=== PATIENT | male | born 1975 | race Caucasian/White ===

== ENCOUNTER 2018-10-16 16:37 | Observation (INO) ==
[2018-10-16] MEDS ORDERED: 0.9 % Sodium Chloride 500 ML IVC ONE (17:05)
[2018-10-16] MEDS ORDERED: cefTRIAXone 1,000 MG in Water for inj. (sterile) 20 ML 10 ML IVP ONE (17:13)
--- NOTE | 2018-10-16 17:25 | Emergency Department Note ---
Disposition Clinical Impression: Acute kidney injury superimposed on chronic kidney disease, Acute cystitis, Spina bifida Cellulitis Qualifiers: Site of cellulitis: unspecified site Qualified Code(s): L03.90 - Cellulitis, unspecified Disposition: Admitted As Inpatient Condition: Fair Forms: ED Satisfaction Letter Time of Disposition: 19:26 General Adult HPI - General Chief complaint: ED Recheck/Abnormal Lab/Rx Stated complaint: rash, weakness, multiple compaints Time Seen by Provider: 10/16/18 16:51 Source: EMS Limitations: physical limitation Nursing Notes Reviewed: Yes Vital Signs Reviewed: Yes - History of Present Illness HPI Narrative: 42-year-old male with a history of spina bifida, nephrectomy, COPD presents for evaluation from [place]. Patient was transferred from [place] for concerns of an elevated d-dimer and was needing a VQ scan given his history of nephrectomy. Patient provided the history stating that he does wear oxygen at times and home. States post were 2 L. States he is noncompliant with his BiPAP because a light sleeper. Does have known COPD and follows with pulmonary. Patient notes chest pain approximately 2 years that is been off and on. Patient denies any cough or fevers. Patient does have a rash on his abdomen which he states started a week ago. No history of any allergies. Patient states has been using topical medicine to help with the rash. Appears to not be puritic. Patient's initial evaluation was done at [place] related a chest x-ray basic labs. Given the patient's history spina bifida a does not have normal lower extremities. Patient is incontinent of urine does self catheter. Pain Scale: 0 - Related Data Previous Rx's Medication Instructions Recorded Metoprolol XL (24 HR) Succ [Toprol 12.5 mg PO DAILY #30 tab.er.24h 10/25/17 Xl] Multivit/Ca/Min/Fe/FA [Thera M 1 tab PO DAILY tablet 10/25/17 Plus] Polyethylene Glycol 3350 [MiraLAX] 17 gm PO DAILY powd.pack 10/25/17 levETIRAcetam [Keppra] 1,250 mg PO BID tablet 10/25/17 Allergies Allergy/AdvReac Type Severity Reaction Status Date / Time No Known Allergies Allergy Verified 09/06/17 12:43 All systems ED: reviewed and negative except as stated. Constitutional: Denies: fever Cardiovascular: Reports: chest pain Respiratory: Reports: dyspnea. Denies: cough Gastrointestinal: Denies: abdominal pain, nausea, vomiting Past Medical History - Past Medical History Source: patient Medical history: Reports: CHF, COPD, hypertension, renal disease Psychiatric history: Reports: no psych history - Social History Smoking Status: Never smoker Smokeless Tobacco Status: No Alcohol use: Reports: none Drug use: Reports: none Physical Exam - General Limitations: physical limitation General appearance: alert - Head Head exam: atraumatic, normocephalic, normal inspection - Eye Eye exam: Present: normal appearance, PERRL, EOMI - ENT ENT exam: normal exam, mucous membranes dry - Neck Neck exam: Present: normal inspection - Chest Chest inspection: Present: normal inspection, symmetric chest wall rise - Respiratory Respiratory exam: Present: accessory muscle use, other (Diffusely diminished) - Cardiovascular Cardiovascular exam: Present: regular rate, tachycardia. Absent: systolic murmur - Abdominal Exam Abdominal exam: Present: Non-Tender, distention, other (Blanching erythematous rash on the right side of his abdomen traversing down his thigh. Warm to the touch.) - Extremities Exam Extremities exam: Present: other (Paraplegic) - Neurological Exam Neurological exam: Present: alert, oriented X3, CN II-XII intact - Skin Skin exam: Present: warm, dry, intact, other Course Course Narrative: Patient's workup was reviewed from [facility]. Will add a VQ scan. Concerns of likely cellulitis patient will get CT scan the abdomen pelvis given abdominal distention as well as concerns for cellulitis and a rash. Patient will be started on the most appropriate antibiotics. Patient also has concerns for UTI with urinary incontinence and straight catheterization. Patient with a Pineda placed. Labs reveal acute on chronic kidney disease. Patient will likely require admission simply based on his comorbidities and his acute on chronic kidney disease. - Reevaluation(s) Reevaluation #1: Patient's labs reviewed. Patient urine studies reveal intrinsic kidney injury. Patient will be admitted for acute on chronic kidney disease as well as cellulitis. Time: 19:15 Reevaluation #2: Patient's VQ scan is low probability PE. Time: 19:38 Vital Signs Temperature 98.8 F 10/16/18 16:41 Pulse Rate 86 10/16/18 16:41 Respiratory Rate 14 10/16/18 16:41 Blood Pressure 148/113 10/16/18 16:41 O2 Sat by Pulse Oximetry 99 10/16/18 16:41 Temperature 98.8 F 10/16/18 16:41 Pulse Rate 103 10/16/18 19:16 Respiratory Rate 14 10/16/18 19:16 Blood Pressure 138/101 10/16/18 19:16 O2 Sat by Pulse Oximetry 93 10/16/18 19:25 Oxygen Delivery Oxygen Delivery Nasal Cannula Medical Decision Making - [facility] Narrative Medical decision making narrative: Patient presented for concerns of rash as well as generalized weakness. Patient does have a complex medical history. Including a nephrectomy with only one kid sara. Patient's abdomen appeared more distended and red. Did prompt CT imaging was shows no acute abnormality. Does have a [employer] shunt which feels not related the patient's initial presentation. Patient also has an element of COPD likely pulmonary hypertension. Patient had a VQ scan which showed low probably PE. Patient's kidney function appears acutely worse. Patient normal kidneys approximately a month ago. Appears to be intrinsic kidney injury based on labs. Patient also self catheters and was placed on most appropriate antibiotic to cover gram positives and negatives. Patient will be admitted to hospitals for's for continued evaluation and monitoring. - Medical Records Medical records reviewed: Yes I reviewed the patient's medical records. 08/2018 Impressions: Technically challenging due to clinical status - history of spina bifida, cannot position for testing. LVEF 55%. Mild left ventricular diastolic dysfunction. RV is normal in size. There is mild reduction in function. Left atrium is not optimally visualized. LA appears externally compressed. Consider dedicated CT imaging if appropriate. Mild-moderate tricuspid regurgitation. Moderate pulmonary hypertension. There is a small pericardial effusion present. There is no echocardiographic evidence of tamponade. - Lab Data Lab Results 10/16/18 10/16/18 10/16/18 Range/Units 17:37 18:04 18:04 PT 13.7 H (9.4-12.1) Seconds INR 1.2 Urine Color Yellow (Yellow) Urine Clarity Cloudy A (Clear) Urine pH 5.5 (5.0-8.0) pH Units Ur Specific [place] 1.021 (1.010-1.025) Urine Protein 30 H (Neg-Trace) mg/dL Urine Glucose (UA) Normal (Normal) mg/dL Urine Ketones Negative (Negative) mg/dL Urine Blood Small H (Negative) Urine Nitrite Negative (Negative) Urine Bilirubin Negative (Negative) Urine Urobilinogen Normal (Normal) mg/dL Ur Leukocyte Esterase Large H (Negative) Urine Microscopic RBC 0-3 (0-3) per hpf Urine Microscopic WBC 50-100 H (0-3) per hpf Ur Squamous Epith Cells Moderate H (None-Few) per lpf Urine Bacteria Many H (None-Few) per hpf Hyaline Casts None Seen (None-Few) per lpf Urine Creatinine 57 mg/dL Urine Sodium 66.9 mEq/L - Radiology Data Radiology results reviewed: Yes I reviewed the patient's radiology results. Abdomen/Pelvis CT 10/16/18 17:04 IMPRESSION: 1. Small volume ascites increased from prior. 2. Redemonstration of 10 cm right lobe of liver cyst. [employer] shunt catheter was coursing through it on the previous. Currently it courses outside of the liver. 3. No bowel obstruction. 4. No direct evidence for acute infective or inflammatory process. D/ / Andrew Serrano MD / Andrew Serrano MD Interpreting Provider: Andrew Serrano MD - EKG Data EKG #1 EKG attestation: Yes I reviewed and interpreted this EKG. EKG shows normal: sinus rhythm Rate: normal Rhythm: NSR P waves: LAE, DHAVAL When compared to previous EKG there are: no significant changes Interpretation: no acute changes, nonspecific ST-T wave changes S.B.AManjit - S.B.A.RPedro Situation: Demographics Background: Presenting Complaint Assessment: Vital Signs, Course and respsone to treatment, Patient/Family Expectation Recommendation: Barrier(s) to disposition, Recommendation based on pending studies, treatments, or consults S.B.A.Cynthia Report Given to: Dr. Kelly NevarezAManjit Repor Time: 19:26
[2018-10-16 18:01] LABS: INR 1.2; Prothrombin Time 13.7 Seconds (9.4-12.1)
[2018-10-16 18:14] LABS: Bilirubin,Urine Negative (Negative); Blood,Urine Small (Negative); Clarity,Urine Cloudy (Clear); Color,Urine Yellow (Yellow); Glucose,Urine (UA) Normal (Normal); Ketones,Urine Negative (Negative); Leukocyte Esterase,Urine Large (Negative); Nitrite,Urine Negative (Negative); PH,Urine 5.5 pH Units (5.0-8.0); Protein,Urine 30 mg/dL (Neg-Trace); Specific Gravity,Urine 1.021 (1.010-1.025); Urobilinogen,Urine Normal (Normal)
[2018-10-16 18:17] LABS: Bacteria,Urine Many per hpf (None-Few); Hyaline Casts,Urine None Seen per lpf (None-Few); RBC,Urine 0-3 per hpf (0-3); Squamous Epithelial Cell,Urine Moderate per lpf (None-Few); WBC,Urine 50-100 per hpf (0-3)
[2018-10-16 18:36] LABS: Sodium, Urine 66.9 mEq/L
--- NOTE | 2018-10-16 19:35 | Emergency Department Note ---
Disposition Clinical Impression: Acute kidney injury superimposed on chronic kidney disease, Acute cystitis, Spina bifida Cellulitis Qualifiers: Site of cellulitis: unspecified site Qualified Code(s): L03.90 - Cellulitis, unspecified Disposition: Admitted As Inpatient Condition: Fair Forms: ED Satisfaction Letter General Adult HPI - General Chief complaint: ED Recheck/Abnormal Lab/Rx Stated complaint: rash, weakness, multiple compaints Time Seen by Provider: 10/16/18 16:51 Source: EMS Limitations: physical limitation - History of Present Illness Pain Scale: 0 - Related Data Previous Rx's Medication Instructions Recorded Metoprolol XL (24 HR) Succ [Toprol 12.5 mg PO DAILY #30 tab.er.24h 10/25/17 Xl] Multivit/Ca/Min/Fe/FA [Thera M 1 tab PO DAILY tablet 10/25/17 Plus] Polyethylene Glycol 3350 [MiraLAX] 17 gm PO DAILY powd.pack 10/25/17 levETIRAcetam [Keppra] 1,250 mg PO BID tablet 10/25/17 Allergies Allergy/AdvReac Type Severity Reaction Status Date / Time No Known Allergies Allergy Verified 09/06/17 12:43 Constitutional: Denies: fever Cardiovascular: Reports: chest pain Respiratory: Reports: dyspnea. Denies: cough Gastrointestinal: Denies: abdominal pain, nausea, vomiting Past Medical History - Past Medical History Medical history: Reports: CHF, COPD, hypertension, renal disease Psychiatric history: Reports: no psych history - Social History Smoking Status: Never smoker Smokeless Tobacco Status: No Alcohol use: Reports: none Drug use: Reports: none Physical Exam - General Limitations: physical limitation General appearance: alert Course Vital Signs Temperature 98.8 F 10/16/18 16:41 Pulse Rate 86 10/16/18 16:41 Respiratory Rate 14 10/16/18 16:41 Blood Pressure 148/113 10/16/18 16:41 O2 Sat by Pulse Oximetry 99 10/16/18 16:41 Temperature 98.8 F 10/16/18 16:41 Pulse Rate 103 10/16/18 19:16 Respiratory Rate 14 10/16/18 19:16 Blood Pressure 138/101 10/16/18 19:16 O2 Sat by Pulse Oximetry 93 10/16/18 19:25 Oxygen Delivery Oxygen Delivery Nasal Cannula Medical Decision Making - Lab Data Lab Results 10/16/18 10/16/18 10/16/18 Range/Units 17:37 18:04 18:04 PT 13.7 H (9.4-12.1) Seconds INR 1.2 Urine Color Yellow (Yellow) Urine Clarity Cloudy A (Clear) Urine pH 5.5 (5.0-8.0) pH Units Ur Specific [place] 1.021 (1.010-1.025) Urine Protein 30 H (Neg-Trace) mg/dL Urine Glucose (UA) Normal (Normal) mg/dL Urine Ketones Negative (Negative) mg/dL Urine Blood Small H (Negative) Urine Nitrite Negative (Negative) Urine Bilirubin Negative (Negative) Urine Urobilinogen Normal (Normal) mg/dL Ur Leukocyte Esterase Large H (Negative) Urine Microscopic RBC 0-3 (0-3) per hpf Urine Microscopic WBC 50-100 H (0-3) per hpf Ur Squamous Epith Cells Moderate H (None-Few) per lpf Urine Bacteria Many H (None-Few) per hpf Hyaline Casts None Seen (None-Few) per lpf Urine Creatinine 57 mg/dL Urine Sodium 66.9 mEq/L Critical Care Time Critical Care Time: Yes Total Critical Care Time: 35 Attestation: CC time of 35 min spent in managment of cellulitis, UTI, renal insuff, spina bifida. Attestation Statement - Attestation Attestation: I examined this patient and my medical decision-making was reviewed with the Resident Physician. I agree with the documented findings, disposition and treatment plan as described except to the extent set forth below. 42-year-old male with a history of spina bifida presents to the emergency room for an elevated d-dimer and right flank pain. Patient is a history of a left sided nephrectomy. He is noted some tenderness to the skin and redness to the skin to the right flank and right side of his abdomen. Exam-aguilera is concerning for possible developing cellulitis. Patient is states he has not felt well. CT scan was done of the abdomen and pelvis which does not show any acute findings. Low probability on the patient's VQ scan. We started the patient on IV antibiotics for possible cellulitis. Patient will be admitted for this. He does have slight elevation of his creatinine as well. Case was discussed with hospitalist. Patient also has evidence of urinary tract infection. Patient was given Rocephin IV and vancomycin IV. Hemodynamically stable
[2018-10-16] MEDS ORDERED: Naloxone 0.4 MG/ML INJ IVP PRN (21:35)
[2018-10-16] MEDS ORDERED: Ipratropium/Albuterol Neb 3 ML IH PRN (21:39)
[2018-10-16] MEDS ORDERED: Ringers Solution, Lactated 1,000 ML IVC SCH (21:45)
--- NOTE | 2018-10-16 22:07 | Internal Med History&Physical ---
<Meet Cartagena R - Last Filed: 10/16/18 23:12> Date of Encounter: 10/16/18 Time of Encounter: 21:30 Internal Medicine - H&P: HPI Chief complaint: rash Admitted From: Emergency Dept Plans for Post Hospital Care: Home History of present illness: Mr. Duarte is a 42 year old male with a past medical history of spina-bifida, copd on 3L NC at home, s/p left nephrectomy. Presented to [facility] ED for evaluation of r keo on his abdomen and associated malaise. Reports that he has been putting a topical cream on the rash but has not helped. It is mildly tender to palpation and involves much his right abdomen, flank and proximal groin region. He denies history of cellulitis. Admits to a recent boil on his right upper thigh. No fevers, chill, nausea, vomiting, diarrhea, palpitations, chest pain, or dizziniess. Also states that his home pulse oximeter has been measuring low 70's while on room air, he normally requires 3L NC at baseline. Admits to history of COPD and ED, is not compliant with CPAP. No history of DVT or PE. Evaluation in the ED did reveal mild tachycardia of 104, elevated serum creatinine of 2.45. UA suggestive of UTI. CT abdomen and pelvis without significant acute findings. D-dimer 2100 with V/Q scan of low probability. Patient was given Vancomycin and ceftriaxone and admitted to [facility] for further evaluation and management. Past Med Surg Social Fam HX - Past Medical History Medical history: CHF, COPD, hypertension, renal disease Additional medical history: Spina bifida Psychiatric history: no psych history - Past Surgical History Additional surgical history: brain shunt, nephrectomy, r leg amputated. - Social History Smoking Status: Never smoker Smokeless Tobacco Status: No Alcohol use: none Drug use: none Internal Medicine - H&P: Meds Metoprolol XL (24 HR) Succ [Toprol Xl] 12.5 mg PO DAILY #30 tab.er.24h 10/25/17 [Rx] Multivit/Ca/Min/Fe/FA [Thera M Plus] 1 tab PO DAILY tablet 10/25/17 [Rx] Polyethylene Glycol 3350 [MiraLAX] 17 gm PO DAILY powd.pack 10/25/17 [Rx] levETIRAcetam [Keppra] 1,250 mg PO BID tablet 10/25/17 [Rx] Allergy/AdvReac Type Severity Reaction Status Date / Time No Known Allergies Allergy Verified 09/06/17 12:43 All Systems PM: A 10-system review of systems was performed and is negative for pertinent findings except as documented above in the HPI. - Constitutional Constitutional: no chills, no fever(s) - EENT Eyes: no change in vision, no diplopia Nose, mouth and throat: no epistaxis, no neck pain, no sore throat - Cardiovascular Cardiovascular ROS IM: no chest pain, no diaphoresis, no palpitations - Respiratory Respiratory: dyspnea on exertion, no cough, no hemoptysis, no wheezing - Gastrointestinal Gastrointestinal: no abdominal pain, no change in bowel habits, no diarrhea, no hematemesis, no hematochezia, no loose stools, no melena, no nausea, no vomiting - Genitourinary Genitourinary ROS male: no dysuria, no flank pain, no hematuria - Musculoskeletal Musculoskeletal ROS IM: no arthralgias, no muscle weakness - Integumentary Integumentary IM: erythema, rash - Neurological Neurological ROS: no confusion, no dizziness, no focal weakness - Psychiatric Psychiatric: no anxiety, no depression - Hematologic/Lymphatic Hematologic/Lymphatic: no easy bleeding, no easy bruising - Constitutional Vitals: Temp Pulse Resp BP Pulse Ox 98.0 F 87 15 135/92 100 10/16/18 21:13 10/16/18 21:13 10/16/18 21:13 10/16/18 21:13 10/16/18 21:13 Exam: General: Seated upright in bed, no apparent distress HEENT: Atraumatic, pupils RADHA with EOMI, anicteric sclera, dry mucous membranes, poor dentition Neck: soft with full range of motion Cardiovascular: Mild tachycardia with regular rate and rhythm, no murmurs Respiratory: clear to auscultation bilaterally, no wheezing, rhonchi or rales noted Abdomen: soft, nontender, non distended, reducible ventral hernia, well healed surgical scars present Extremities: Bilateral AKA, no swelling or edema. Integumentary: Erythema of the right abdomen, flank, and right proximal thigh with poorly defined borders, no purulence or drainage. Mild tenderness to palpation. No streaking or palpable lymphadenopathy. Neuro: alert and oriented to person, place, and situation. No focal deficits. Psych: appropriate mood and affect. Internal Med - H&P Results - Labs Labs: Urine 10/16/18 Range/Units 18:04 Urine Color Yellow (Yellow) Urine Clarity Cloudy A (Clear) Urine pH 5.5 (5.0-8.0) pH Units Ur Specific [place] 1.021 (1.010-1.025) Urine Protein 30 H (Neg-Trace) mg/dL Urine Glucose (UA) Normal (Normal) mg/dL - Impressions ITS Impressions Pulmonary Perfusion Imaging 10/16/18 17:02 IMPRESSION: Low probability for pulmonary embolism. D/ / Porfirio Bates MD / Porfirio Bates MD Interpreting Provider: Porfirio Bates MD Abdomen/Pelvis CT 10/16/18 17:04 IMPRESSION: 1. Small volume ascites increased from prior. 2. Redemonstration of 10 cm right lobe of liver cyst. [employer] shunt catheter was coursing through it on the previous. Currently it courses outside of the liver. 3. No bowel obstruction. 4. No direct evidence for acute infective or inflammatory process. D/ / Andrew Serrano MD / Andrew Serrano MD Interpreting Provider: Andrew Serrano MD - Assessment and plan (1) Cellulitis Current Visit: Yes Status: Acute Assessment and plan: Physical exam findings are concerning for non-purulent cellulitis Not currently meeting sepsis criteria, with 1 of 4 sirs positive Plan: Blood cultures drawn and pending, follow for results Continue broad coverage with Vancomycin, de-escalate as clinically appropriate Repeat AM CBC Qualifiers: Site of cellulitis: unspecified site Qualified Code(s): L03.90 - Cellulitis, unspecified (2) Acute cystitis Current Visit: Yes Status: Acute Assessment and plan: Acute simple cystitis suggested by symptoms and UA Patient does straight cath every 3-4 hours secondary to neurogenic bladder No recent antibiotic or UTI treatments Associated CARMITA Plan: Urine obtained and sent for culture Continue with IV ceftriaxone 1 g daily and de-escalate as appropriate Qualifiers: Hematuria presence: with hematuria Qualified Code(s): N30.01 - Acute cystitis with hematuria (3) Acute kidney injury Current Visit: Yes Status: Acute Assessment and plan: CARMITA with serum creatinine of 2.45, baseline appears to be 1.0 Patient is s/p left nephrectomy CT abdomen and pelvis without evidence of obstruction or nephrolithiasis Suspect pre-renal etiology Plan: Received 1L NS in ED, will continue IV fluids for 1 additional Liter Avoid nephrotoxic agents as possible Obtain AM BMP Repeat electrolytes and replete as needed (4) Acute and chronic respiratory failure with hypoxia Current Visit: Yes Status: Acute Assessment and plan: COPD and ED at home, 3L NC and CPAP at night, however patient reports non- compliance Home pulse oximetry in the low 70s on room air D-dimer elevated, V/Q scan as low probability Plan: Arthur burnettn Reports he was recently given daily inhalers by slot machine repairer, he is unsure of which. We will ask pharmacy to confirm his home medications and restart as appropriate. Supplemental oxygen as necessary for sat >92% (5) Elevated d-dimer Current Visit: No Status: Acute Assessment and plan: D-dimer of ~2080 on admission VQ scan is low probability. CTA not obtained due to CARMITA Patient is paraplegic, however no history of DVT/PE Plan: will obtain bilateral DVT studies. (6) Neurogenic bladder Current Visit: Yes Status: Acute Assessment and plan: Requiring 3-4 hour straight cath secondary to spina-bifida and neurogenic bladder Now presenting with UA concerning for UTI Continue catheterization and UTI treatment as above (7) DVT prophylaxis Current Visit: Yes Status: Acute Assessment and plan: Heparin 5000 units SQ Q8H - Time Spent With Patient Total time spent is greater than 50% in coordination of care (as documented) at patient's floor/unit and/or counseling patient: <Beck Jacinto - Last Filed: 10/17/18 02:16> Date of Encounter: 10/17/18 Internal Medicine - H&P: HPI History of present illness: Mr. Duarte is a 42 year old male All Systems PM: A 10-system review of systems was performed and is negative for pertinent findings except as documented above in the HPI. - Constitutional Vitals: Temp Pulse Resp BP Pulse Ox 98.4 F 93 16 125/85 99 10/16/18 23:59 10/16/18 23:59 10/16/18 23:59 10/16/18 23:59 10/16/18 23:59 Internal Med - H&P Results - Labs Labs: Urine 10/16/18 Range/Units 18:04 Urine Color Yellow (Yellow) Urine Clarity Cloudy A (Clear) Urine pH 5.5 (5.0-8.0) pH Units Ur Specific [place] 1.021 (1.010-1.025) Urine Protein 30 H (Neg-Trace) mg/dL Urine Glucose (UA) Normal (Normal) mg/dL - Impressions ITS Impressions Pulmonary Perfusion Imaging 10/16/18 17:02 IMPRESSION: Low probability for pulmonary embolism. D/ / Porfirio Bates MD / Porfirio Bates MD Interpreting Provider: Porfirio Bates MD Abdomen/Pelvis CT 10/16/18 17:04 IMPRESSION: 1. Small volume ascites increased from prior. 2. Redemonstration of 10 cm right lobe of liver cyst. [employer] shunt catheter was coursing through it on the previous. Currently it courses outside of the liver. 3. No bowel obstruction. 4. No direct evidence for acute infective or inflammatory process. D/ / Andrew Serrano MD / Andrew Serrano MD Interpreting Provider: Andrew Serrano MD - Time Spent With Patient Total time spent is greater than 50% in coordination of care (as documented) at patient's floor/unit and/or counseling patient: - Attending Attestation I saw and evaluated the patient. I reviewed the residents note, performed my o wn physical examination and agree with findings and plan as documented in the residents note. Patient seen and examined on 10/16/18. Patient seen on the medical floor. Has groin area rash as well as possible UTI. Will treat with antibiotics as above. Elevated d-dimer, but negative CT angiogram. Agree with lower extremity Dopplers in the morning.
[2018-10-17] MEDS: *HR* Heparin 5,000 UNIT/ML VIAL SQ SCH ×2 (05:58→14:09)
[2018-10-17 07:42] LABS: Hematocrit 47.6 % (37.5-50.1); Hemoglobin 13.1 g/dL (12.9-16.9); Mean Corpuscular HGB Conc 27.5 g/dL (31.6-35.5); Mean Corpuscular Hemoglobin 24.7 pg (28.0-33.3); Mean Corpuscular Volume 89.8 fL (83.0-100.0); Mean Platelet Volume 10.1 fL (9.4-12.4); Platelet Count 220 K/mcL (140-400); Red Cell Distribution Width 15.3 % (11.5-14.5)
[2018-10-17 08:02] LABS: Calcium 8.8 mg/dL (8.6-10.3); Potassium 4.2 mEq/L (3.5-5.1)
[2018-10-17] MEDS ORDERED: cefTRIAXone 1,000 MG in Water for inj. (sterile) 20 ML 10 ML IVP SCH (09:00)
[2018-10-17] MEDS ORDERED: 0.9 % Sodium Chloride 1,000 ML IVC SCH (10:45)
[2018-10-17 11:51] LABS: ABG Base Excess 8 mEq/L (-2 to 3); ABG HCO3 41 mEq/L (21-27); ABG Oxygen Saturation 95 % (95-98); ABG PCO2 99 mmHg (35-45); ABG PH 7.22 pH Units (7.32-7.45); ABG PO2 98 mmHg (85-104); ABG TCO2 44 mEq/L (20-26)
[2018-10-17] MEDS ORDERED: Isovue-370 500 ML BOTTLE PO ONE (12:16)
--- NOTE | 2018-10-17 12:55 | Event Note ---
Date of Encounter: 10/17/18 Time of Encounter: 12:30 Was already seen and examined earlier at approximately 1100. Was called back to room per RN for confusion. Patient was alert and oriented X4 initial exam and now alert to self and no seasonal hospital but he is clearly confused. Hemodynamically stable. Stat ABGs ordered which revealed CO2 of 99, pH 7.2 patient was immediately placed on BiPAP. Father at bedside and reports patient is supposed to wear BiPAP at home he is noncompliant. ABD CT reviewed and shows small volume of ascites increased from prior exam, [employer]END[employer] shunt catheter was previously in coursing through the liver and now currently sits outside of the liver. ABD distended and firm. Discussed case with Dr. Catalan and ABD CT reviwed with him as well and there is concern for possible [employer] shunt malposition and transferred to [facility] as recommended. I discussed with [facility] transfer center and plan is to transfer to [facility] once bed is available. RN updated. Will continue to monitor patient closely
--- NOTE | 2018-10-17 13:02 | Discharge Summary ---
Orders not resulted at time of discharge: Pending orders 10/16/18 17:30 Culture,Blood [BC] Stat 10/16/18 18:04 Culture,Urine [RM] Stat 10/17/18 07:20 Complete Blood Count [HEME] AM 0400 10/17/18 10:56 ABG [Arterial Blood Gas] Stat 10/17/18 16:00 ABG [Arterial Blood Gas] Routine 10/18/18 04:00 CMP [Comprehensive Metabolic Panel] AM 0400 Complete Blood Count w/o Diff [HEME] AM 0400 10/18/18 18:00 Vancomycin,Trough Timed 10/19/18 04:00 CMP [Comprehensive Metabolic Panel] AM 0400 Complete Blood Count w/o Diff [HEME] AM 0400 10/20/18 04:00 CMP [Comprehensive Metabolic Panel] AM 0400 Complete Blood Count w/o Diff [HEME] AM 0400 10/21/18 04:00 CMP [Comprehensive Metabolic Panel] AM 0400 Complete Blood Count w/o Diff [HEME] AM 0400 10/22/18 04:00 CMP [Comprehensive Metabolic Panel] AM 0400 Complete Blood Count w/o Diff [HEME] AM 0400 Date of Encounter: 10/17/18 Time of Encounter: 12:56 - Discharge Diagnosis (1) Cellulitis Priority: Primary Status: Acute Qualifiers: Site of cellulitis: unspecified site Qualified Code(s): L03.90 - Cellulitis, unspecified (2) Acute cystitis Priority: Primary Status: Acute Qualifiers: Hematuria presence: with hematuria Qualified Code(s): N30.01 - Acute cystitis with hematuria (3) Acute kidney injury Priority: Primary Status: Acute (4) Elevated d-dimer Priority: Secondary Status: Acute (5) Acute and chronic respiratory failure with hypoxia Priority: Secondary Status: Acute (6) Neurogenic bladder Priority: Primary Status: Acute Hospital course: Mr. Duarte is a 42 year old male with PMH spina bifida, [employer] shunt, chronic hypercarbia due to restrictive lung disease, right BKA and chronic diastolic heart failure presented to [facility] on 10/16/2018 with complaints of a diffuse rash and abdominal pain. He was hospitalized for further workup and treatment. He she was found to have diffuse erythema that appeared to be consistent with nonpurulent cellulitis and was started on IV vancomycin. He was also found to have acute on chronic kidney disease and was started on IV fluids. UA was concerning for UTI and patient was started on IV ceftriaxone. His d-dimer was elevated in the ED and VQ scan showed low probability of pulmonary embolism. On day of discharge patient was initially alert and oriented to person place time and situation. He became acutely confused shortly after initial assessment the stat ABG showed a CO2 of 99. He is immediately placed on BiPAP. Of note the patient's father's at bedside and says that patient is noncompliant with nocturnal BiPAP at home. His ABD CT was reviewed and it showed a small amount of ascites and possible malposition of [employer] shunt catheter ([employer] shunt catheter was coursing through the liver on previous imaging and currently sitting outside liver). Case was discussed with attending Dr. Sawyer there was concern for possible [employer] shunt malpositioning and was recommended that he be transferred to [facility] for neurosurgery evaluation. [facility] transfer center was called and patient was accepted. Discharge discussed with: patient, family, nurse - Time Spent with Patient Total time spent providing and/or coordinating discharge services: - Discharge Medications Home Medications: Multivit/Ca/Min/Fe/FA [Thera M Plus] 1 tab PO DAILY tablet 10/25/17 [Rx] Polyethylene Glycol 3350 [MiraLAX] 17 gm PO DAILY powd.pack 10/25/17 [Rx] Albuterol Sulfate [Ventolin Hfa] 2 puff IH Q6H PRN 10/17/18 [History] Budesonide/Formoterol 160/4.5 [Symbicort 160/4.5] 2 puff IH BIDR 10/17/18 [History] Furosemide [Lasix] 20 mg PO DAILY 10/17/18 [History] Hydrochlorothiazide [Microzide] 12.5 mg PO DAILY 10/17/18 [History] Potassium Chloride [K-Tab ER] 20 meq PO DAILY 10/17/18 [History] Allergies/Adverse Reactions: Allergy/AdvReac Type Severity Reaction Status Date / Time No Known Allergies Allergy Verified 09/06/17 12:43 Date of admission: 10/16/18 19:57 Primary care physician: Meet Puckett MD Discharging clinician: Vickie Portillo Anticipated date of discharge: 10/17/18 - Constitutional Vitals: Temp Pulse Resp BP Pulse Ox 97.7 F 80 16 122/83 98 10/17/18 10:53 10/17/18 10:53 10/17/18 10:53 10/17/18 10:53 10/17/18 10:53 General appearance: Present: A&O X 1, A&O X 2 Exam: . - Head Head exam: Present: atraumatic, normocephalic - Eye Eye exam: Present: PERRL, conjuntiva pink, sclera anicteric Pupils: Present: PERRL - Neck Neck exam general surgery: Present: supple, trachea midline. Absent: l ymphadenopathy - Respiratory Respiratory exam: Present: CTAB. Absent: accessory muscle use, rales, rhonchi, wheezes - Cardiovascular Cardiovascular exam: Present: RRR, +S1, +S2. Absent: diastolic murmur, gallop, rubs, systolic murmur - GI/Abdominal GI/Abdominal exam: Present: distended, normal bowel sounds, soft, no peritoneal signs. Absent: tenderness - Extremities Exam Extremities exam: Present: joint swelling, pedal edema, warm, radial pulses palpable and symmetrical. Absent: calf tenderness, cyanotic Additional comments: Diffuse lower extremity swelling. Previous right BKA - Neurological Exam Neurological exam: Present: abnormal gait, CN II-XII intact, no focal deficits. Absent: pronater drift, facial droop, speech deficit Additional comments: Alert to self and place only. Follows commands. Will move extremities spontaneously. - Skin Skin exam: Present: dry, erythema, rash (Diffuse erythema from bilateral lower extremities standing to upper abdomen. Right upper thigh with superficial abrasion.) - Patient Status Disposition: Transfer Short-Term Hosp Condition: Fair Functional capacity at discharge: wheelchair bound Overall status at discharge: patient is not back to baseline - Discharge Instructions Follow Up With: Meet Puckett MD [Primary Care Provider] -
[2018-10-17 13:04] LABS: Eosinophils # 0.2 K/mcL (0.0-0.6); Lymphocytes # 1.4 K/mcL (0.6-4.6); Monocytes # 0.5 K/mcL (0.0-1.3); Neutrophils # 6.6 K/mcL (1.6-8.9); Platelet Estimate Normal (Normal)
[2018-10-17 13:05] LABS: Hypochromasia Present (Not Present); Polychromasia 1+ (Not Present); Stomatocytes 1+ (Not Present)
[2018-10-17 15:10] VITALS: BP 137/82
[2018-10-17 16:50] LABS: ABG Base Excess 9 mEq/L (-2 to 3); ABG HCO3 43 mEq/L (21-27); ABG Oxygen Saturation 96 % (95-98); ABG PCO2 108 mmHg (35-45); ABG PH 7.21 pH Units (7.32-7.45); ABG PO2 104 mmHg (85-104); ABG TCO2 46 mEq/L (20-26)
--- NOTE | 2018-10-17 17:12 | Event Note ---
Date of Encounter: 10/17/18 Time of Encounter: 17:11 EP ABG show CO2 of 107. Patient examined at bedside. He is drowsy but easy to arouse. Discussed case with pulmonology and intubation not needed at this time as patient is responsive and only minimal elevation in CO2. BiPAP rate increased per RT. Received call from [facility] transfer center patient has a bed available at this time. [facility] will be called for transport
[2018-10-17 18:14] LABS: ABG Base Excess 8 mEq/L (-2 to 3); ABG HCO3 41 mEq/L (21-27); ABG Oxygen Saturation 95 % (95-98); ABG PCO2 100 mmHg (35-45); ABG PH 7.22 pH Units (7.32-7.45); ABG PO2 97 mmHg (85-104); ABG TCO2 44 mEq/L (20-26); Blood Gas PEEP 8 cm H2O; Blood Gas Respiration Rate 20
--- NOTE | 2018-10-17 18:52 | Electrocardiograph Report ---
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
[2018-10-17] MEDS ORDERED: Aminoglycoside Consult 1 EACH MC ONE (18:53)
--- NOTE | 2018-10-18 01:27 | Event Note ---
Date of Encounter: 10/17/18 Time of Encounter: 21:15 Alerted by 3A Charge Nurse TIO Le that [facility] was trying to get a hold of me regarding David Duarte's transfer to [facility] today via [facility]. I called [facility] @ [phone] and spoke with Dilcia Bernal who stated that the paperwork had not been signed for transport and would I be able to give a verbal authorization. I told her that I would try and find the form here to sign and have faxed to her @ [phone]. Called Mimi who was able to find a form to complete w/transport reason being neurosurgical intervention for pts. unresolved symptoms. Signed form and had it faxed to [facility]. Called Dilcia to confirm receipt who reported that the pt. did not deteriorate during transfer but was intubated and was comfortable on arrival.
== END 2018-10-17 18:54 | disposition short-term general hospital (02) ==
LOC: EMEROOARM 16:37 → 3ANU 16:37 → ICNU 10-17 18:24
PROVIDERS: ADMIT Pediatrics; ATTEND Pediatrics